=== PATIENT | male | born 1970 | race African-American/Black ===

== ENCOUNTER 2017-12-04 21:30 | Emergency (ER) | payer BC ==
[~2017-12-04] VITALS: Ht 172.7 cm; Wt 124.7 kg
--- NOTE | ~2017-12-04 | EKG ---
[address] [address] [facility] [place] [address] ELECTROCARDIOGRAM REPORT Name: TRACY KAISER Room #: DEP JOVANA Whitman#: [id number] Admission: 12/04/17 Attend Phys: Discharge: 12/05/17 Date of : 74 Report #: [id number] THIS REPORT FOR: //name// [facility] ED Test Date: 2017-12-04 Test Time: 22:37:22 Pat Name: TRACY KAISER Department: Room: Gender: Room Service Bellhop: jannette : 1970 Requested By: Severino Moreira Order Number: [id number] MD: Jay Briceno Measurements Intervals [place] Rate: 62 P: 12 MO: 158 QRS: 3 QRSD: 101 T: 3 QT: 404 QTc: 411 Interpretive Statements Sinus rhythm No significant abnormality No previous ECG available for comparison Electronically Signed On 12-06-2017 16:32:15 CDT by Jay Briceno [email or web address] <ELECTRONICALLY SIGNED> By: Jay Briceno MD, [facility] 12/06/17 [id number] [id number] Jay Briceno MD, FACC /EPI
[2017-12-04 22:42] LABS: AMP/METHAMP Negative (Negative); BARBITURATES Negative (Negative); BENZODIAZEPINES Negative (Negative); COCAINE Negative (Negative); METHADONE Negative (Negative); OPIATES Negative (Negative); PCP Negative (Negative)
[2017-12-04 23:04] LABS: ABSOLUTE NEUTROPHILS 3.8 thou/uL (1.4-8.2); BASOPHILS 1.1 % (0.0-2.0); EOSINOPHILS 4.6 % (0.0-3.0); HEMATOCRIT 42.4 % (42.0-52.0); LYMPHOCYTES 34.8 % (24.0-44.0); MCV 87.9 fL (80.0-100.0); MONOCYTES 5.6 % (1.0-8.0); PLATELET COUNT 246 thou/uL (150-400); POLYS 53.9 % (36.0-66.0); RBC 4.83 mil/uL (4.50-6.00); WBC 7.1 thou/uL (4.0-11.0)
[2017-12-04 23:15] LABS: ANION GAP 10 mmol/L (7-16); BUN 11 mg/dL (7-18); CALCIUM 8.8 mg/dL (8.5-10.1); CHLORIDE 103 mmol/L (98-107); CO2 23 mmol/L (21-32); CREATININE 1.1 mg/dL (0.7-1.3); GLUCOSE 101 mg/dL (74-106); POTASSIUM 3.8 mmol/L (3.5-5.1); SODIUM 136 mmol/L (136-145)
[2017-12-04 23:20] LABS: ALBUMIN 3.6 g/dL (3.4-5.0); MAGNESIUM 1.9 mg/dL (1.8-2.4); SGOT 24 U/L (15-37); SGPT 25 U/L (30-65); TOTAL BILIRUBIN 0.5 mg/dL (<0.1-1.0); TOTAL PROTEIN 7.2 g/dL (6.4-8.2); TROPONIN-I < 0.04 ng/mL (<0.06)
[2017-12-05 02:30] VITALS: BP 142/92
== END 2017-12-05 02:31 | disposition home or self-care (01) ==
LOC: ER 21:30
PROVIDERS: Emergency Medicine
DX: I10 Essential (primary) hypertension (principal); R42 Dizziness and giddiness; R51 Headache; Z91.041 Radiographic dye allergy status

== ENCOUNTER 2021-09-22 12:02 | Emergency (ER) | payer BC ==
[~2021-09-22] VITALS: Ht 172.7 cm; Wt 124.7 kg
[2021-09-22 12:57] LABS: ABSOLUTE NEUTROPHILS 3.8 thou/uL (1.4-8.2); EOSINOPHILS 6.2 % (0.0-3.0); HEMATOCRIT 45.6 % (42.0-52.0); HEMOGLOBIN 15.3 gm/dL (14.0-18.0); LYMPHOCYTES 27.9 % (24.0-44.0); MCH 29.4 pg (26.0-34.0); MCHC 33.5 g/dL (28.0-37.0); MCV 87.7 fL (80.0-100.0); MONOCYTES 4.2 % (1.0-8.0); PLATELET COUNT 279 thou/uL (150-400); POLYS 60.7 % (36.0-66.0); RDW 14.4 % (10.5-14.5); WBC 6.3 thou/uL (4.0-11.0)
[2021-09-22 13:11] LABS: CALCIUM 9.5 mg/dL (8.5-10.1); CREATININE 1.2 mg/dL (0.7-1.3); POTASSIUM 4.1 mmol/L (3.5-5.1)
[2021-09-22 13:21] LABS: ALBUMIN 3.6 g/dL (3.4-5.0); MAGNESIUM 2.1 mg/dL (1.8-2.4); TOTAL BILIRUBIN 0.5 mg/dL (0.2-1.0); TOTAL PROTEIN 7.6 g/dL (6.4-8.2)
[2021-09-22 16:39] VITALS: BP 120/72
--- NOTE | 2021-09-23 13:51 | EKG ---
[address] [address] [place] [address] ELECTROCARDIOGRAM REPORT Name: TRACY KAISER Room #: DEP JOVANA Whitman#: [id number] Admission: 09/22/21 Attend Phys: Discharge: 09/22/21 Date of : 74 Report #: [id number] [facility] ED Test Date: 2021-09-22 Test Time: 12:11:12 Pat Name: TRACY KAISER Department: Room: Gender: M Manager Ob: : 1970 Requested By: Adelaida Morocho Order Number: [id number] MD: Jhony Johnson Measurements Intervals [place] Rate: 61 P: 16 VT: 142 QRS: 5 QRSD: 92 T: 2 QT: 358 QTc: 361 Interpretive Statements Sinus rhythm Low voltage, precordial leads Abnormal R-wave progression, early transition Borderline T abnormalities, inferior leads Compared to ECG 12/04/2017 22:37:22 Low QRS voltage now present T-wave abnormality now present Electronically Signed On 09-23-2021 13:51:41 CORPORATE COORDINATOR by Jhony Johnson [email or web address] <ELECTRONICALLY SIGNED> By: Jhony Johnson MD, [facility] 09/23/21 1351 1211 121 Jhony Johnson MD, FAC /EPI
== END 2021-09-22 16:29 | disposition home or self-care (01) ==
LOC: ER 12:02
PROVIDERS: Emergency Medicine
DX: R06.00 Dyspnea, unspecified (principal); R53.1 Weakness; R06.02 Shortness of breath; R00.2 Palpitations; Z20.822 Contact with and (suspected) exposure to COVID-19